=== PATIENT | female | born 1965 | race Caucasian/White ===

== ENCOUNTER → 2019-12-18 12:01 | Outpatient (POV) | payer MEDICAID, SELFPAY ==
[2019-12-18 12:32] VITALS: BMI 51.1
--- NOTE | 2019-12-19 08:00 | HMH.VVPMSO ---
[facility] Virtual Visit SOAP Consent for virtual visit:: With the recent concerns about the COVID-19, we are trying to minimize exposure to you by shifting to telehealth appointments whenever possible. It restricts me from seeing you in person, but the trade off is protecting you during this pandemic. Can you see and hear me okay, and do you consent to this option? If not, I would be happy to see if we can reschedule your appointment in the future, when feasible. Has patient consented to this virtual visit?: Yes Subjective:: Patient is a pleasant 54-year-old white female who presents today for medication refills. She is to being treated for low back pain with radiation into her bilateral lower extremities. She is a [facility] patient however this is her first telehealth visit at this location. Patient states she is doing well on her medication. She rates her pain a 5 out of 10. 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 She is currently on [place] 10 mg 1 p.o. 3 times daily and diazepam 5 mg 1 p.o. twice daily for muscle spasms. She denies any side effects from medication. [facility] #[id number] reviewed and appropriate. Urine drug screens have been appropriate in the past. ROS General: no recent weight change, no fever, no sleep disturbances Respiratory: no cough, no shortness of air, no recurring pulmonary infections Cardiovascular/Peripheral Vascular: No chest pain, No palpitations, no edema, no shortness of breath. Gastrointestinal: no new onset incontinence, normal bowel movements reported Genitourinary: no new onset incontinence Musculoskeletal: Back pain, leg pain Psychiatric: normal mood/ affect Neurological: [denies new onset weakness in extremities], [denies new onset balance issues] Family history: Reviewed and noncontributory Medical history: Degenerative disc disease, lumbar radiculopathy, history of abscesses Surgical history: I&D Objective:: Physical exam: Constitutional: Healthy appearing, well-developed, alert, in no acute distress Psychiatric: Judgment and insight intact, Alert and oriented x4 Mood and affect: Mood normal, affect appropriate Head and face: Inspection: Normocephalic atraumatic, extraocular movement intact Respiratory: Breathing nonlabored, nondyspneic Cardiovascular: No cyanosis, clubbing, or edema observed Skin: Head and neck: Skin with no lesions or rash observed Gait: Able to walk without assistive device: Able to heel and toe walk Neurologic: Sensation grossly intact per patient Musculoskeletal: Limited range of motion lumbar spine noted on video Assessment:: Degenerative disc disease lumbar spine lumbar spondylosis and lumbar radiculopathy Plan:: We will refill the patient's [place] 10 mg 1 p.o. 3 times daily and Valium 5 mg 1 tab p.o. twice daily will give her 2 months worth of medication see her back in the clinic in 2 to 3 months. She is been instructed to call the office if she has any issues prior to her next appointment. Patient has been prescribed a controlled substance after being counseled on the medication, medication safety, and possible side effects. BARBARA report has been obtained and reviewed prior to prescription and found to be appropriate. Opioid contract was reviewed and signed by the patient, and that they have agreed to all of the terms set forth by our compliance program. This encounter was performed as a telemedicine visit via secure 2 way video and audio to minimize risk and transmission of Covid-19. The patient and we understand the limitations of a telemedicine visit including inability to check reflexes, possibly missing subtle findings on physical exam. Alternative options were presented to the patient and the patient elected to proceed with the visit. We specifically discussed risk factors for Covid-19 including age, heart or lung disease, diabetes, immunosuppression and travel. We also discussed that NSAIDs may worsen Covi
== END ==
PROVIDERS: Visit Provider Clinical Nurse Specialist Family Health
DX: M51.16 Intervertebral disc disorders with radiculopathy, lumbar region (principal); M47.896 Other spondylosis, lumbar region
CPT/HCPCS: 99202; 99212